=== PATIENT | male | born 1965 | race African-American/Black ===

== ENCOUNTER 2018-12-18 10:18 | Emergency (ER) | payer MEDICAID ==
[~2018-12-18] VITALS: Ht 175.3 cm; Wt 101.0 kg
[2018-12-18] MEDS ORDERED: IBUPROFEN 400MG TABLET PO ONE (11:00)
[2018-12-18] MEDS ORDERED: CLONIDINE 0.1MG TABLET PO ONE (11:00)
[2018-12-18 13:43] VITALS: BP 169/107
== END 2018-12-18 13:56 | disposition home or self-care (01) ==
LOC: ER 10:18
DX: S93.602A Unspecified sprain of left foot, initial encounter (principal); I10 Essential (primary) hypertension; Z88.0 Allergy status to penicillin; W50.1XXA Accidental kick by another person, initial encounter; Y93.39 Activity, other involving climbing, rappelling and jumping off; Y92.89 Other specified places as the place of occurrence of the external cause; Y99.8 Other external cause status
CPT/HCPCS: 73610; 73630; 99283; Z7610

== ENCOUNTER 2019-02-09 20:52 | Emergency (ER) | payer MEDICAID ==
[~2019-02-09] VITALS: Ht 172.7 cm; Wt 100.0 kg
[2019-02-09] MEDS ORDERED: CYCLOBENZAPRINE 10MG TABLET PO ONE (23:00)
[2019-02-09] MEDS ORDERED: KETOROLAC 30MG/ML VIAL IM ONE (23:00)
[2019-02-09] MEDS ORDERED: IBUPROFEN 400MG TABLET PO ONE (23:15)
[2019-02-10 00:49] VITALS: BP 151/109
== END 2019-02-10 00:41 | disposition home or self-care (01) ==
LOC: ER 20:52
DX: S10.83XA Contusion of other specified part of neck, initial encounter (principal); I10 Essential (primary) hypertension; V49.49XA Driver injured in collision with other motor vehicles in traffic accident, initial encounter; Y93.89 Activity, other specified; Y92.89 Other specified places as the place of occurrence of the external cause; Y99.8 Other external cause status; Z87.891 Personal history of nicotine dependence; Z88.0 Allergy status to penicillin
CPT/HCPCS: 73590; 99283